=== PATIENT | male | born 1985 | race Caucasian/White ===

== ENCOUNTER 2023-03-03 21:01 | Emergency (ER) | payer MEDICARE, OTHER ==
[~2023-03-03] VITALS: Ht 180.3 cm; Wt 70.3 kg
[2023-03-03 22:18] VITALS: BP 112/71; TEMP 98.4
[2023-03-03] MEDS ORDERED: CEPH500T PO (22:36)
[2023-03-03 22:43] VITALS: O2SAT 100
== END 2023-03-03 22:44 | disposition home or self-care (01) ==
LOC: ER 21:06
DX: L03.115 Cellulitis of right lower limb (principal); Z79.899 Other long term (current) drug therapy; W57.XXXA Bitten or stung by nonvenomous insect and other nonvenomous arthropods, initial encounter; Y93.89 Activity, other specified; Y92.89 Other specified places as the place of occurrence of the external cause; Y99.8 Other external cause status